=== PATIENT | female | born 1960 | race Asian ===

== ENCOUNTER 2018-09-07 09:28 | Day surgery (SDC) | payer MEDICAID ==
[~2018-09-07 09:28] MED LIST: CEFAZOLIN 1 GM/50 ML (PMX) 50 ML IVPB
[2018-09-07] MEDS: SOD CHLORIDE 0.9% 1,000 ML IV (13:19)
[2018-09-07] MEDS ORDERED: MIDAZOLAM 1 MG/ML 2 ML INJ (15:26)
[2018-09-07] MEDS ORDERED: PROPOFOL 20 ML (15:26)
[2018-09-07] MEDS ORDERED: CEFAZOLIN 1 GM INJ (15:26)
[2018-09-07] MEDS ORDERED: ONDANSETRON 4 MG INJ (15:27)
[2018-09-07] MEDS ORDERED: KETOROLAC 30 MG INJ (15:27)
[2018-09-07] MEDS ORDERED: PHENYLephrine (100 MCG/ML) 10ML SYG (15:49)
[2018-09-07] MEDS ORDERED: OXYCODONE/ACETAMINOPHEN (5/325) TAB PO (16:00)
[2018-09-07] MEDS: BUPIVACAINE 0.5% (SDV) 30 ML INJ (16:00)
[2018-09-07] MEDS ORDERED: ONDANSETRON 4 MG INJ IV (16:00)
[2018-09-07] MEDS ORDERED: HYDROmorphONE 1 MG/5 ML IV SYRINGE IV (16:00)
[2018-09-07] MEDS: LIDOCAINE 1% (MPF) 30 ML INJ (16:01)
== END 2018-09-07 18:36 | disposition home or self-care (01) ==
LOC: SDS 09:28
DX: N60.91 Unspecified benign mammary dysplasia of right breast (principal); N60.11 Diffuse cystic mastopathy of right breast
CPT/HCPCS: 19120; 71045; 88307